=== PATIENT | male | born 1945 | race Caucasian/White ===

== ENCOUNTER 2023-09-23 07:43 | Day surgery (SDC) | payer MEDICARE ==
[2023-09-23] VITALS (10 sets, daily range): BP systolic 107–147; BP diastolic 53–76; PULSE 49–67; RESP 14–17
[~2023-09-23] VITALS: Ht 185.4 cm; Wt 122.5 kg
[2023-09-23] MEDS ORDERED: FURO20TA4 PO (08:24)
[2023-09-23] MEDS ORDERED: ZINC50TA64 PO (08:24)
[2023-09-23] MEDS ORDERED: CARV12.511 PO (08:24)
[2023-09-23] MEDS ORDERED: ATOR10 PO (08:24)
[2023-09-23] MEDS ORDERED: POTASSIUM CITRATE PO (08:24)
[2023-09-23] MEDS ORDERED: LEVO5TAB13 PO (08:24)
[2023-09-23] MEDS ORDERED: SACU1TAB7 PO (08:24)
[2023-09-23] MEDS ORDERED: PENT400T72 PO (08:24)
[2023-09-23] MEDS ORDERED: APIX5TAB PO (08:24)
[2023-09-23] MEDS ORDERED: DAPA10TA PO (08:24)
[2023-09-23] MEDS ORDERED: PROPOFOL 10 MG/ML 20ML VIAL IV ONE (09:15)
[2023-09-23] MEDS: 0.9%NACL 1000ML 1,000 ML IV ONE (09:31)
== END 2023-09-23 10:40 | disposition home or self-care (01) ==
LOC: DAH 07:43 → ENDO 07:43
PROVIDERS: ATTEND Internal Medicine Gastroenterology
DX: R10.13 Epigastric pain (principal); K31.89 Other diseases of stomach and duodenum; K31.7 Polyp of stomach and duodenum; I10 Essential (primary) hypertension; I48.91 Unspecified atrial fibrillation; E78.5 Hyperlipidemia, unspecified; Z90.89 Acquired absence of other organs; Z90.49 Acquired absence of other specified parts of digestive tract; Z98.890 Other specified postprocedural states
CPT/HCPCS: 43251; 43239; J7030 ×2; J2704; A4620; A4215; A4223; A7002; A4222; A4221; A4663; A4606; J3490